=== PATIENT | female | born 2000 | race Hispanic/Latino ===

== ENCOUNTER 2024-07-21 08:40 | Emergency (ER) | payer BC ==
[~2024-07-21] VITALS: Ht 157.5 cm; Wt 94.9 kg
[2024-07-21] MEDS ORDERED: PREDNISONE50 MG PO (09:57)
[2024-07-21] MEDS ORDERED: ULTRAM 50MG50 MG PO (09:58)
[2024-07-21] MEDS ORDERED: LIDOCAINE1 EACH TOP (10:02)
[2024-07-21] MEDS: KETOROLAC TROMETHAMINE 30 MG/ML VIAL IM STA (10:10)
[2024-07-21 10:15] VITALS: PULSE 80; RESP 16; TEMP 97.5
[2024-07-21 10:35] VITALS: BP 110/60; PULSE 80; RESP 16; TEMP 97.5; O2SAT 100
== END 2024-07-21 10:36 | disposition home or self-care (01) ==
LOC: FSED 08:51
DX: M54.50 Low back pain, unspecified (principal); M46.1 Sacroiliitis, not elsewhere classified; F17.210 Nicotine dependence, cigarettes, uncomplicated
CPT/HCPCS: 81003; 81025; 96372; 99284; J1885